=== PATIENT | female | born 2005 | race Two or more races ===

== ENCOUNTER 2023-02-11 19:34 | Emergency (ER) | payer OTHER ==
[~2023-02-11] VITALS: Ht 162.6 cm; Wt 99.3 kg
[2023-02-11] MEDS ORDERED: ZITHROMAX500 MG PO (22:01)
== END 2023-02-11 22:07 | disposition home or self-care (01) ==
LOC: ER 19:35 → EMR PED 20:07
DX: J06.9 Acute upper respiratory infection, unspecified (principal)